=== PATIENT | male | born 1965 | race Two or more races ===

== ENCOUNTER 2025-02-08 13:02 | Outpatient (CLI) | payer OTHER ==
[~2025-02-08] VITALS: Ht 167.6 cm; Wt 73.5 kg
[2025-02-08] MEDS: albuterol 2.5 MG/3 ML nebule NEB ONE (13:49)
[2025-02-08 13:50] VITALS: PULSE 76; RESP 14; O2SAT 98
[2025-02-08 14:02] VITALS: PULSE 75; RESP 14
--- NOTE | 2025-02-08 15:19 | PROCEDURE NOTE - Respiratory ---
Procedure Note-Respiratory Providers to CC Copies To 1: AIRAM BAKER DO Procedure Name: This is a spirometry study dated February 08, 2025. The spirometry study was performed both before and after inhaled bronchodilator. Spirometry measurements: Both the forced vital capacity and the FEV1 are in the normal range. The FEV1 ratio is normal. The flow rates are normal with the exception of mild loss of the terminal flow rate FEF 75%. After inhaled bronchodilator there is slight improvement in the FEV1 and the terminal flow rate measurements. Conclusion: Normal or very near normal spirometry study. We have no previous studies for comparison. PADMAJA MEDRANO MD February 08, 2025 15:19
== END 2025-02-08 23:59 | disposition home or self-care (01) ==
LOC: RT 13:02
PROVIDERS: ATTEND Chiropractor
DX: J42 Unspecified chronic bronchitis (principal); J98.9 Respiratory disorder, unspecified
CPT/HCPCS: 94060; 94760